=== PATIENT | female | born 1965 | race Caucasian/White ===

== ENCOUNTER 2021-10-02 07:59 | Day surgery (SDC) | payer BC ==
[2021-09-30 16:15] VITALS: BMI 33.2
[~2021-10-02 07:59] MED LIST: LACTATED RINGERS 1,000 ML IV SCH
[2021-10-02 08:33] VITALS: TEMP 97.4
[2021-10-02] MEDS ORDERED: LACTATED RINGERS 1,000 ML IV ONE (08:45)
[2021-10-02 08:48] LABS: Glucose,Whole Blood 86 mg/dL (75-99)
[2021-10-02] MEDS ORDERED: LIDOCAINE 2% INJ 20 MG/ML (2 ML VIAL) ONE (09:07)
[2021-10-02] MEDS ORDERED: PROPOFOL 10 MG/ML 20 ML VIAL IV ONE (09:07)
--- NOTE | 2021-10-02 09:25 | P.PCN ---
Date of Procedure: 10/02/21 Procedure(s) Performed: BRIEF HISTORY: Patient is a 56-year-old pleasant 8 female scheduled for an elective colonoscopy as a part of a for colon cancer and family history of colon cance diagnosed in her mother at age 70. PROCEDURE PERFORMED: Colonoscopy snare polypectomy . PREOPERATIVE DIAGNOSIS: Screening or colon cancer and family history of colon cancer diagnosed in her mother. IV sedation per Anesthesia. PROCEDURE: After informed consent was obtained, the patient, was brought into the endoscopy unit. IV sedation was administered by Anesthesia under continuous monitoring. Digital rectal examination was normal. Initially the Olympus CF-160 flexible video colonoscope was then inserted in the rectum, gradually advanced into the cecum without any difficulty. Careful examination was performed as the scope was gradually being withdrawn. Ileocecal valve and the appendiceal orifice were visualized and appeared normal. Prep was excellent. Mucosa of the cecum, ascending colon, appeared normal. The transverse colon there was a 7 mm sessile polyp removed by snare polypectomy. Rest of thetransverse colon, descending colon, sigmoid colon, and rectum appeared normal. Retroflexion was performed in the rectum and no lesions were seen. Scattered sigmoid diverticulosis seen. The patient tolerated the procedure well. IMPRESSION: 7 mm transverse colon polyp status post polypectomy Rest of the colon appeared normal . scattered sigmoid diverticulosis. RECOMMENDATIONS: Findings of this examination were discussed with the patient [as well as a family. She was advised to follow with the biopsy results. If the biopsy results adenoma she can have a repeat colonoscopy in 5 years.
[2021-10-02 09:46] VITALS: BP 142/80; PULSE 77; RESP 20
== END 2021-10-02 09:56 | disposition home or self-care (01) ==
LOC: ORWHC2ENDO 07:59
PROVIDERS: ATTEND Internal Medicine Gastroenterology
DX: Z12.11 Encounter for screening for malignant neoplasm of colon (principal); K63.5 Polyp of colon; K57.30 Diverticulosis of large intestine without perforation or abscess without bleeding; Z80.0 Family history of malignant neoplasm of digestive organs; G47.33 Obstructive sleep apnea (adult) (pediatric); K21.9 Gastro-esophageal reflux disease without esophagitis; Z79.899 Other long term (current) drug therapy
CPT/HCPCS: 88305; 45385; J2704; J2001

== ENCOUNTER 2024-07-27 11:37 | Day surgery (SDC) | payer BC ==
[2024-07-25 08:57] VITALS: BMI 34.4
[~2024-07-27 11:37] MED LIST changes: -LACTATED RINGERS 1,000 ML IV SCH; +LIDOCAINE 1% (10MG/ML) FOR IV START INTRADERMA PRN
[2024-07-27] MEDS: LACTATED RINGERS 1,000 ML IV SCH (13:17)
[2024-07-27] MEDS: IV FLUID CONTINUATION 1,000 ML IV ONE ×2 (13:18→14:09)
[2024-07-27 14:04] VITALS: TEMP 97.9
[2024-07-27] MEDS ORDERED: PROPOFOL 10 MG/ML 20 ML VIAL IV ONE (14:12)
[2024-07-27] MEDS ORDERED: LIDOCAINE 2% (PF) 20 MG/ML 5 ML VIAL ONE (14:12)
--- NOTE | 2024-07-27 14:24 | P.PCN ---
Date of Procedure: 07/27/24 Procedure(s) Performed: BRIEF HISTORY: Patient is a 59-year-old, pleasant, white female scheduled for an upper endoscopy as a part of evaluation of longstanding history of GERD. She is presently on omeprazole 40 mg daily and Pepcid at bedtime and symptoms are gradually improving. . PROCEDURE PERFORMED: Esophagogastroduodenoscopy with biopsy PREOPERATIVE DIAGNOSIS: Longstanding history of GERD. IV sedation per anesthesia. PROCEDURE: After informed consent was obtained, the patient was brought into the endoscopy unit. IV sedation was administered by Anesthesia under continuous monitoring. Initially the Olympus GIF-140 video endoscope was inserted into the mouth. Esophagus intubated without any difficulty. It was gradually advanced into the stomach and duodenum and carefully examined. The bulb and the second part of the duodenum appeared normal. The scope at this time was withdrawn to the stomach, adequately insufflated with air, and upon careful examination, mucosa of the antrum had patchy areas of erythema consistent with gastritis and biopsies were done from this area. Mucosa of the, body, cardia and the fundus appeared normal. The scope was then withdrawn into the esophagus. The GE junction was located at 39 cm from the incisors. The esophagus appeared normal. There were no erosions or ulcerations seen and the patient tolerated the procedure well. IMPRESSION: 1. Mild antral gastritis. 2. Normal-appearing esophagus with no evidence of esophagitis or Wiggins's esophagus. RECOMMENDATIONS: The findings of this examination were discussed with the patient as well as her family. She was advised to follow-up with the biopsy results. Continue with omeprazole 40 mg daily and Pepcid at bedtime and follow antireflux measures..
[2024-07-27 15:01] VITALS: BP 132/78; PULSE 78; RESP 18
== END 2024-07-27 15:27 | disposition home or self-care (01) ==
LOC: ORWHC2ENDO 11:37
PROVIDERS: ATTEND Internal Medicine Gastroenterology
DX: K29.50 Unspecified chronic gastritis without bleeding (principal); K21.9 Gastro-esophageal reflux disease without esophagitis
CPT/HCPCS: 43239; J2704; J2003; 88305